=== PATIENT | male | born 1970 | race Caucasian/White ===

== ENCOUNTER 2017-08-06 11:00 | Outpatient (RCR) | payer OTHER, SELFPAY | END 2017-08-06 23:59 | LOC: PT.CARL 11:00 | PROVIDERS: Referring Provider Orthopaedic Surgery; Visit Provider Orthopaedic Surgery | DX: Z96.652 Presence of left artificial knee joint (principal); M25.562 Pain in left knee | CPT/HCPCS: 97014; 97110; 97140; 97161; G0283 ==

== ENCOUNTER 2017-09-04 16:00 | Outpatient (RCR) | payer OTHER, SELFPAY | END 2017-09-04 17:00 | disposition home or self-care (01) | LOC: PT 16:00 | PROVIDERS: Visit Provider Orthopaedic Surgery | DX: Z96.652 Presence of left artificial knee joint | CPT/HCPCS: 97110; 97140 ==

== ENCOUNTER → 2019-09-26 10:48 | Outpatient (CLI) | payer BC, SELFPAY ==
[2019-09-26 11:38] LABS: Basophils # 0.1 K/mm3 (0-0.2); Basophils % 1.4 % (0.1-2.0); Eosinophils # 0.1 K/mm3 (0.0-0.4); Eosinophils % 1.9 % (0.1-12.0); Hematocrit 47.6 % (42.0-52.0); Hemoglobin 16.5 g/dL (14.1-18.0); Lymphocytes # 2.4 K/mm3 (0.7-4.5); Lymphocytes % 33.8 % (10-50); Mean Corpuscular HGB Conc 34.7 g/dL (31.8-35.4); Mean Corpuscular Hemoglobin 32.3 pg (27.0-31.2); Mean Corpuscular Volume 93.3 fl (80-94); Mean Platelet Volume 7.1 fl (7.4-10.4); Monocytes # 0.4 K/mm3 (0.1-1.0); Monocytes % 5.2 % (1.7-9.3); Neutrophils # 4.1 K/mm3 (1.8-7.8); Neutrophils % 57.7 % (37.0-80.0); Platelet Count 253 K/mm3 (142-424); Red Blood Count 5.11 M/mm3 (4.60-6.20); Red Cell Distribution Width 12.8 % (11.5-17.5); White Blood Count 7.1 K/mm3 (4.8-10.8)
[2019-09-26 12:43] LABS: Alanine Aminotransferase 77 U/L (12-78); Albumin Level 4.7 g/dl (3.5-5.0); Albumin/Globulin Ratio 1.6 (1.1-1.8); Alkaline Phosphatase 72 U/L (38-126); Anion Gap 14.4 mEq/L (5-15); Aspartate Amino Transferase 43 U/L (17-59); Bilirubin,Total 0.4 mg/dl (0.2-1.3); Blood Urea Nitrogen 24 mg/dl (9-20); Calcium 10.1 mg/dl (8.4-10.2); Carbon Dioxide 29 mmol/L (22.0-30.0); Chloride 100 mmol/L (98-107); Estimated Glomerular Filt Rate 71 ml/min (>60); GFR (African American) 86 ML/MIN (>60); Globulin 2.9 g/dL (1.3-3.2); Glucose 100 mg/dl (74-100); HDL Cholesterol 50 mg/dl (40-60); Potassium 4.4 mmoL/L (3.5-5.1); Sodium 139 mmol/L (136-145); Total Protein,Serum 7.6 g/dl (6.3-8.2); Uric Acid 8.8 mg/dl (3.5-8.5)
[2019-09-26 12:44] LABS: Chol/HDL Ratio 3.4 (1-3.5); Cholesterol 170 mg/dl (140-200); Triglycerides 184 mg/dl (30-150); VLDL Cholesterol 37 mg/dL (0-40)
[2019-09-26 13:12] LABS: Prostate Specific Ag, Diagnost 0.986 ng/ml (0.0-4.0)
== END ==
PROVIDERS: Visit Provider Internal Medicine
DX: I10 Essential (primary) hypertension (principal); M10.9 Gout, unspecified; E78.5 Hyperlipidemia, unspecified; N40.1 Benign prostatic hyperplasia with lower urinary tract symptoms
CPT/HCPCS: 36415; 80053; 80061; 84153; 84550; 85025

== ENCOUNTER → 2020-02-02 14:42 | Outpatient (CLI) | payer BC, SELFPAY | PROVIDERS: PCP Internal Medicine; Visit Provider Internal Medicine | DX: G47.10 Hypersomnia, unspecified (principal); I10 Essential (primary) hypertension; R40.0 Somnolence; R06.83 Snoring | CPT/HCPCS: G0399 ==

== ENCOUNTER 2020-06-06 08:52 | Emergency (ER) | payer BC, SELFPAY ==
--- NOTE | 2020-06-06 08:49 | ECG_ITS ---
APPROVED REPORT Exam: Resting ECG HR:74 bpm ECG Measurements Heart Rate 74 AXES WA 160 P 36 QRSd 86 QRS 22 QT 392 T 45 QTc 435 Conclusion Normal sinus rhythm Normal ECG Electronically signed by : Neri Adams, 06/07/2020 14:48:00
[2020-06-06 08:53] VITALS: BP 164/109; PULSE 74; RESP 20; TEMP 36.9; O2SAT 98; BMI 32.1
--- NOTE | 2020-06-06 08:56 | XR_ITS ---
PROCEDURE: XR CHEST 2V CLINICAL HISTORY: chest pain COMPARISON: No exams were available for comparison FINDINGS: The cardiomediastinal silhouette and pulmonary vascularity are within normal limits. The lungs are clear without infiltrates, suspicious nodules, or pleural effusions. No acute bony abnormalities. IMPRESSION: No acute findings. Dictated by: Jad Benitez MD 06/06/2020 09:38 Jad Benitez MD in [facility] 06/06/2020 09:38
--- NOTE | 2020-06-06 09:10 | [facility].EDCP ---
ED Disposition Clinical Impression: Atypical chest pain, Anxiety Disposition: Home, Self-Care Condition on Discharge: Good Instructions: DI for Atypical Chest Pain Referrals: PCP,No [Non-Staff] - Mannie Rios MD [Staff Physician] - - Critical Care Critical Care Time: No Attestation: On 06/06/20, the high probability of a clinically significant, sudden or life threatening deterioration of the following system(s) required my full and direct attention, intervention and personal management. The time I documented below is in addition to time spent performing reported procedures but includes the following listed in this critical care notation. Medical Decision Making - Medical Records Medical records reviewed: Yes: I reviewed the patient's medical records. - Nain Inquiry Pt receiving controlled substance: No Vital Signs: 06/06/20 08:53 06/06/20 11:04 06/06/20 11:47 Temperature 98.5 F Temperature Source Oral Pulse Rate [Right Radial] 74 68 65 Respiratory Rate 20 17 Blood Pressure [Right Arm] 164/109 H 149/95 H 139/91 H Blood Pressure Mean [Right Arm] 127 113 107 Blood Pressure Source [Right Arm] Automatic Cuff Blood Pressure Position [Right Arm] Sitting 02 Sat by Pulse Oximetry 98 95 98 Oxygen Delivery Method Room Air Room Air - Lab Data Lab Results 06/06/20 08:50: WBC 4.7 L, RBC 5.20, Hgb 17.7, Hct 51.1, MCV 98.3 H, MCH 34.1 H, MCHC 34.7, RDW 13.4, Plt Count 193, MPV 7.8, Neut % (Auto) 66.2, Lymph % (Auto) 23.0, [place] % (Auto) 8.7, Eos % (Auto) 0.7, Baso % (Auto) 1.3, Neut # (Auto) 3.1, Lymph # (Auto) 1.1, [place] # (Auto) 0.4, Eos # (Auto) 0.0, Baso # (Auto) 0.1 06/06/20 08:50: Sodium 136, Potassium 4.5, Chloride 100, Carbon Dioxide 22, Anion Gap 18.5 H, BUN 12, Creatinine 1.00, Estimated Creat Clear 140, Estimated GFR 79, Est GFR ( Amer) 95, Glucose 118 H, Calcium 10.1, Troponin I < 0.01, TSH 2.93 06/06/20 08:50: PT 11.0, INR 0.99, APTT 24.0 06/06/20 08:50: D-Dimer 0.41 06/06/20 08:50: NT-Pro-B Natriuret Pep 61.4 06/06/20 08:50: Acetone Level None detected 06/06/20 09:50: VBG pH 7.41, VBG pCO2 35.6, VBG pO2 63.3 H, VBG HCO3 22.0 L, VBG Total CO2 23.1, VBG O2 Saturation 92.7 H, VBG Base Excess -2.7 L 06/06/20 12:00: Troponin I < 0.01 Result diagrams: 06/06/20 08:50 06/06/20 08:50 Orders (Tests/Meds): ED MEDICATIONS Discontinued Medications Generic Name Dose Route Start Last Admin Trade Name Heathq PRN Reason Stop Dose Admin Aspirin 325 mg 06/06/20 09:04 06/06/20 09:15 Aspirin 325mg Tablet PO 06/06/20 09:05 Not Given ONCE ONE Aspirin 324 mg 06/06/20 09:16 06/06/20 09:17 Aspirin 81mg Chewable Tablet PO 06/06/20 09:17 324 mg ONCE ONE Administration Lorazepam 2 mg 06/06/20 13:00 Lorazepam 1mg Tablet PO 06/06/20 13:01 ONCE ONE ORDERS Category Date Time Status Troponin I Q3H Lab 06/06/20 15:00 Ordered - Radiology Data #1 Image(s): Chest Image Reviewed: Yes I reviewed the patient's radiology results, Yes I reviewed the patient's radiology image, Yes I reviewed the patient's radiology image w/the ED provider Preliminary Findings: Normal/NAD, No Fracture Seen, No Infiltrates Seen - ECG Data Tracing #1 No ventricular rate of 74 bpm. Normal MD interval of 160 ms. Normal QTC. Final interpretation was normal sinus rhythm normal EKG. ECG initial impression date: 06/06/20 ECG initial impression time: 08:51 - Reevaluation(s) Time: 13:01 Reevaluation #1: On reevaluation, patient is feeling better. 2 - troponins. Negative D-dimer. No significant EKG changes. Patient needs to follow-up with PCP and cardiology. Given strict return precautions. Verbalized understanding. Medical Decision Narrative: 50-year-old male presented to the emergency department with chest discomfort. Patient is relatively low risk based on heart score. Work-up will be initiated. Chest Pain HPI - General Chief Complaint: Chest Pain Sta
[2020-06-06 09:38] LABS: Chloride 100 mmol/L (98-107); Potassium 4.5 mmoL/L (3.5-5.1); Sodium 136 mmol/L (136-145)
[2020-06-06 09:41] LABS: Anion Gap 18.5 mEq/L (5-15); Blood Urea Nitrogen 12 mg/dl (9-20); Carbon Dioxide 22 mmol/L (22.0-30.0); Creatinine Clearance Estimated 140 mL/min (50-200); Estimated Glomerular Filt Rate 79 ml/min (>60); GFR (African American) 95 ML/MIN (>60)
[2020-06-06 09:42] LABS: Calcium 10.1 mg/dl (8.4-10.2); Glucose 118 mg/dl (74-100)
[2020-06-06 09:45] LABS: Basophils # 0.1 K/mm3 (0-0.2); Basophils % 1.3 % (0.1-2.0); Eosinophils % 0.7 % (0.1-12.0); Hematocrit 51.1 % (42.0-52.0); Hemoglobin 17.7 g/dL (14.1-18.0); Lymphocytes # 1.1 K/mm3 (0.7-4.5); Mean Corpuscular HGB Conc 34.7 g/dL (31.8-35.4); Mean Corpuscular Hemoglobin 34.1 pg (27.0-31.2); Mean Corpuscular Volume 98.3 fl (80-94); Mean Platelet Volume 7.8 fl (7.4-10.4); Monocytes # 0.4 K/mm3 (0.1-1.0); Monocytes % 8.7 % (1.7-9.3); Neutrophils # 3.1 K/mm3 (1.8-7.8); Neutrophils % 66.2 % (37.0-80.0); Platelet Count 193 K/mm3 (142-424); Red Cell Distribution Width 13.4 % (11.5-17.5); White Blood Count 4.7 K/mm3 (4.8-10.8)
[2020-06-06 09:51] LABS: NT Pro Brain Natriuretic Pep. 61.4 pg/mL (0-125)
[2020-06-06 09:55] LABS: Troponin I < 0.01 ng/ml (0.00-0.034)
[2020-06-06 09:57] LABS: INR 0.99 (0.9-1.1)
[2020-06-06 09:58] LABS: D-Dimer 0.41 ug/mL (0.15-8.0)
[2020-06-06 10:01] LABS: Acetone, Serum (Rapid) None Detected (None Detect)
[2020-06-06 10:12] LABS: VBG Base Excess -2.7 mmol/L (-2.4-2.3); VBG Oxygen Saturation 92.7 % (50-70); VBG PCO2 35.6 mmol/L (35-51); VBG PH 7.41 mmol/L (7.31-7.41); VBG PO2 63.3 mmol/L (28-40); VBG Total CO2 23.1 mmol/L (23-27)
[2020-06-06 10:13] LABS: Thyroid Stimulating Hormone 2.93 uIU/mL (0.465-4.68)
[2020-06-06 11:04] VITALS: BP 149/95; PULSE 68; O2SAT 95
[2020-06-06 11:47] VITALS: BP 139/91; PULSE 65; RESP 17; O2SAT 98
--- NOTE | 2020-06-06 12:03 | PC.NURSE ---
2nd troponin drawn and to lab for resulting.
[2020-06-06 12:54] LABS: Troponin I < 0.01 ng/ml (0.00-0.034)
--- NOTE | 2020-06-06 12:55 | PC.NURSE ---
patient and update on plan of care. both deny questions or needs. dr haley at bedside for disposition.
[2020-06-06 13:12] VITALS: BP 133/87; PULSE 79; RESP 17; TEMP 36.8; O2SAT 98
== END 2020-06-06 13:13 | disposition home or self-care (01) ==
PROVIDERS: Emergency Provider Emergency Medicine; PCP Internal Medicine
DX: R07.89 Other chest pain (principal); F41.9 Anxiety disorder, unspecified
CPT/HCPCS: 71046; 80048; 82009; 82803; 83880; 84443; 84484; 85025; 85378; 85610; 85730; 93005; 99283

== ENCOUNTER → 2020-08-04 13:48 | Outpatient (CLI) | payer BC, SELFPAY | PROVIDERS: PCP Internal Medicine; Visit Provider Internal Medicine | DX: Z20.828 Contact with and (suspected) exposure to other viral communicable diseases (principal); U07.1 COVID-19 | CPT/HCPCS: U0003 ==

== ENCOUNTER 2021-10-01 13:02 | Emergency (ER) | payer OTHER, SELFPAY ==
[2021-10-01 13:03] VITALS: BP 139/79; PULSE 55; RESP 18; TEMP 36.5; O2SAT 96; BMI 33.3
--- NOTE | 2021-10-01 13:15 | XR_ITS ---
PROCEDURE INFORMATION: Exam: XR Left Hand Exam date and time: 10/01/2021 1:15 PM Age: 51 years old Clinical indication: Injury or trauma; Other: Smashed end of index finger; Crushing; Left; Injury date: 10/01/21; Additional info: Trauma/ severe smashed index finger left- fracture as well TECHNIQUE: Imaging protocol: XR Left hand. Views: 1 or 2 views. COMPARISON: No relevant prior studies available. FINDINGS: Bones/joints: Comminuted, displaced fracture of the distal portion of the 2nd distal phalanx. No dislocation. Soft tissues: Soft tissue injury in the distal 2nd phalanx. IMPRESSION: Open comminuted fracture of the distal 2nd phalanx.
--- NOTE | 2021-10-01 13:24 | PC.NURSE ---
radiology is bedside
--- NOTE | 2021-10-01 13:28 | PC.NURSE ---
assisted the patient to sitting back on the stretcher and soaking his hand in the tub of warm water with Hibiclens. Patient tolerated well.
--- NOTE | 2021-10-01 13:53 | [facility].EDWNDL ---
ED Disposition Clinical Impression: Fracture of distal phalanx of left index finger Qualifiers: Encounter type: initial encounter Fracture type: open Fracture alignment: displaced Qualified Code(s): S62.631B - Displaced fracture of distal phalanx of left index finger, initial encounter for open fracture Disposition: Home, Self-Care Condition on Discharge: Good Instructions: DI for Laceration Repair Prescriptions: Hydrocod/Acet 5/325 mg [Marks 5/325mg tablet] 1 tab PO Q6HP PRN #10 tab PRN Reason: Moderate To Severe Pain Transmission Status: Pending to [facility] # Amoxicillin/Potassium Clav [Augmentin 875-125 Tablet] 1 tab PO Q12H #20 tab Transmission Status: Pending to [facility] # Referrals: Felipe Toure [Primary Care Provider] - - Critical Care Critical Care Time: No Attestation: On 10/01/21, the high probability of a clinically significant, sudden or life threatening deterioration of the following system(s) required my full and direct attention, intervention and personal management. The time I documented below is in addition to time spent performing reported procedures but includes the following listed in this critical care notation. Medical Decision Making - Medical Records Medical records reviewed: Yes: I reviewed the patient's medical records. - Nain Inquiry Pt receiving controlled substance: No Vital Signs: 10/01/21 13:03 Temperature 97.7 F Temperature Source Oral Pulse Rate [Right Radial] 55 L Respiratory Rate 18 Blood Pressure [Right Arm] 139/79 Blood Pressure Mean [Right Arm] 99 Blood Pressure Source [Right Arm] Automatic Cuff Blood Pressure Position [Right Arm] Sitting 02 Sat by Pulse Oximetry 96 Oxygen Delivery Method Room Air Orders (Tests/Meds): ED MEDICATIONS Discontinued Medications Generic Name Dose Route Start Last Admin Trade Name Freq PRN Reason Stop Dose Admin Hydrocodone Bitart/Acetaminophen 1 tab 10/01/21 13:15 10/01/21 13:41 Hydrocodone 10mg/Apap 325mg Tab PO 10/01/21 13:16 1 tab ONCE ONE Administration - Radiology Data #1 Image(s): Hand Image Reviewed: Yes I reviewed the patient's radiology results, Yes I reviewed the patient's radiology image, Yes I have reviewed radiologist's interpretation IMPRESSION: Open comminuted fracture of the distal 2nd phalanx. - Reevaluation(s) Time: 14:50 Reevaluation #1: Patient tolerated procedure well. Patient does have a significant comminuted open fracture. To be placed on short course analgesics with antibiotics. I did speak with hand surgery in [place]. They have arranged to see him tomorrow morning emergently in the hand clinic. Patient will maintain this appointment. Given strict return precautions. Verbalized understanding. Medical Decision Narrative: 51-year-old male presented to the emergency department with some left hand pain. Patient has evidence of crush injury. I am concerned for open fracture. Patient was provided analgesics. Work-up initiated. Wound/Laceration HPI - General Chief Complaint: Wound/Laceration Stated Complaint: AO 10/01 finger laceraation Time Seen by Provider: 10/01/21 13:10 Mode of Arrival: Ambulatory Limitations: No Limitations Description of Symptoms (Recalled from ER Triage Doc. by RN): Pt presents with injury to left hand involving index, middle and ring fingers. Open lac present to index finger. Bruising noted to middle and ring finger. 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 - History of Present Illness HPI narrative: Is a 51-year-old male presented to the emergency department with injury to his left hand. Patient was using a rn postpartum when he smashed his fingers in it. Patient has a laceration to the distal aspect of the left index finger. He is complaining of some pain in his index middle and ring finger on that hand. Patient states that he is up-to-date on tetanus immunization. Did not gonzalez
[2021-10-01 15:04] VITALS: BP 128/81; PULSE 61; RESP 18; TEMP 36.2; O2SAT 98
--- NOTE | 2021-10-02 09:28 | PC.NURSE ---
pt called advising [facility] could not see pt today. Could we fax papers to another facility , i advised her they would have to request them. pt then called back later and asked same thing and stated that he was going to [facility] and that he needed reports. mine engineering supervisor contacted and a disc and reports were prepared for pt to chart picker. i also called [facility] dr garcia office and they advised that dr garcia was in surgery all day and that they had made him an appt for tomorrow morning.
== END 2021-10-01 15:04 | disposition home or self-care (01) ==
PROVIDERS: Emergency Provider Emergency Medicine; PCP Internal Medicine
DX: S62.631B Displaced fracture of distal phalanx of left index finger, initial encounter for open fracture (principal); S61.311A Laceration without foreign body of left index finger with damage to nail, initial encounter; W23.0XXA Caught, crushed, jammed, or pinched between moving objects, initial encounter; Y92.73 Farm field as the place of occurrence of the external cause
CPT/HCPCS: 13132; 73120; 99283

== ENCOUNTER → 2022-06-12 07:45 | Outpatient (CLI) | payer OTHER, SELFPAY ==
[2022-06-12 08:10] LABS: Basophils # 0.1 K/mm3 (0-0.2); Basophils % 1.6 % (0.1-2.0); Eosinophils # 0.1 K/mm3 (0.0-0.4); Eosinophils % 1.6 % (0.1-12.0); Hematocrit 49.7 % (42.0-52.0); Hemoglobin 16.8 g/dL (14.1-18.0); Lymphocytes # 1.6 K/mm3 (0.7-4.5); Mean Corpuscular HGB Conc 33.7 g/dL (31.8-35.4); Mean Corpuscular Hemoglobin 33.2 pg (27.0-31.2); Mean Corpuscular Volume 98.4 fl (80-94); Mean Platelet Volume 7.7 fl (7.4-10.4); Monocytes # 0.5 K/mm3 (0.1-1.0); Monocytes % 6.4 % (1.7-9.3); Neutrophils # 4.7 K/mm3 (1.8-7.8); Neutrophils % 67.4 % (37.0-80.0); Platelet Count 210 K/mm3 (142-424); Red Blood Count 5.05 M/mm3 (4.60-6.20); Red Cell Distribution Width 13.4 % (11.5-17.5)
[2022-06-12 08:48] LABS: Alanine Aminotransferase 73 U/L (12-78); Albumin Level 4.9 g/dl (3.5-5.0); Albumin/Globulin Ratio 1.8 (1.1-1.8); Alkaline Phosphatase 96 U/L (38-126); Anion Gap 17.6 mEq/L (5-15); Aspartate Amino Transferase 41 U/L (17-59); Bilirubin,Total 0.7 mg/dl (0.2-1.3); Blood Urea Nitrogen 19 mg/dl (9-20); Calcium 10.3 mg/dl (8.4-10.2); Carbon Dioxide 29 mmol/L (22.0-30.0); Chloride 97 mmol/L (98-107); Chol/HDL Ratio 3.7 (1-3.5); Cholesterol 167 mg/dl (140-200); Estimated Glomerular Filt Rate 70 ml/min (>60); GFR (African American) 85 ML/MIN (>60); Globulin 2.7 g/dL (1.3-3.2); Glucose 115 mg/dl (74-100); HDL Cholesterol 45 mg/dl (40-60); Potassium 4.6 mmoL/L (3.5-5.1); Sodium 139 mmol/L (136-145); Total Protein,Serum 7.6 g/dl (6.3-8.2); Triglycerides 130 mg/dl (30-150); Uric Acid 5.8 mg/dl (3.5-8.5); VLDL Cholesterol 26 mg/dL (0-40)
[2022-06-12 09:05] LABS: Direct LDL Cholesterol 96.73 mg/dL (100-129)
[2022-06-12 09:18] LABS: Prostate Specific Ag Screen 0.6 ng/ml (0.0-4.0)
== END ==
PROVIDERS: PCP Internal Medicine; Visit Provider Internal Medicine
DX: M10.9 Gout, unspecified (principal); M15.0 Primary generalized (osteo)arthritis; I10 Essential (primary) hypertension; E78.5 Hyperlipidemia, unspecified; F41.9 Anxiety disorder, unspecified; Z12.5 Encounter for screening for malignant neoplasm of prostate
CPT/HCPCS: 36415; 80053; 80061; 84550; 85025; G0103

== ENCOUNTER → 2022-06-25 15:24 | Outpatient (CLI) | payer OTHER, SELFPAY | PROVIDERS: PCP Internal Medicine; Visit Provider Internal Medicine | DX: G47.30 Sleep apnea, unspecified (principal); I10 Essential (primary) hypertension; R06.83 Snoring; E66.9 Obesity, unspecified ==

== ENCOUNTER → 2022-07-18 15:39 | Outpatient (CLI) | payer OTHER, SELFPAY | PROVIDERS: PCP Internal Medicine; Visit Provider Internal Medicine | DX: G47.33 Obstructive sleep apnea (adult) (pediatric) (principal); I10 Essential (primary) hypertension; R06.83 Snoring; E66.9 Obesity, unspecified | CPT/HCPCS: 95806; G0399 ==

== ENCOUNTER → 2022-10-16 12:48 | Outpatient (CLI) | payer OTHER, SELFPAY ==
[2022-10-16 17:29] LABS: Hemoglobin A1C 5.6 % (4.0-6.0)
[2022-10-16 17:35] LABS: Chloride 100 mmol/L (98-107); Potassium 5.4 mmoL/L (3.5-5.1); Sodium 137 mmol/L (136-145)
[2022-10-16 17:38] LABS: Anion Gap 12.4 mEq/L (5-15); Blood Urea Nitrogen 17 mg/dl (9-20); Calcium 9.4 mg/dl (8.4-10.2); Carbon Dioxide 30 mmol/L (22.0-30.0); Estimated Glomerular Filt Rate 78 ml/min (>60); GFR (African American) 95 ML/MIN (>60); Glucose 87 mg/dl (74-100)
== END ==
PROVIDERS: PCP Internal Medicine; Visit Provider Internal Medicine
DX: I10 Essential (primary) hypertension (principal); R73.01 Impaired fasting glucose; M10.9 Gout, unspecified; M15.0 Primary generalized (osteo)arthritis
CPT/HCPCS: 80048; 83036

== ENCOUNTER → 2023-05-28 13:27 | Outpatient (CLI) | payer OTHER, SELFPAY ==
[2023-05-28 14:26] LABS: Alanine Aminotransferase 54 U/L (12-78); Albumin Level 4.8 g/dl (3.5-5.0); Albumin/Globulin Ratio 1.8 (1.1-1.8); Alkaline Phosphatase 76 U/L (38-126); Aspartate Amino Transferase 44 U/L (17-59); Bilirubin,Total 0.8 mg/dl (0.2-1.3); Blood Urea Nitrogen 14 mg/dl (9-20); Calcium 9.5 mg/dl (8.4-10.2); Carbon Dioxide 26 mmol/L (22.0-30.0); Chloride 101 mmol/L (98-107); Chol/HDL Ratio 3.8 (1-3.5); Cholesterol 179 mg/dl (140-200); Estimated Glomerular Filt Rate 78 ml/min (>60); GFR (African American) 94 ML/MIN (>60); Globulin 2.7 g/dL (1.3-3.2); Glucose 95 mg/dl (74-100); HDL Cholesterol 47 mg/dl (40-60); Sodium 139 mmol/L (136-145); Total Protein,Serum 7.5 g/dl (6.3-8.2); Triglycerides 155 mg/dl (30-150); Uric Acid 7.8 mg/dl (3.5-8.5); VLDL Cholesterol 31 mg/dL (0-40)
[2023-05-28 14:37] LABS: Direct LDL Cholesterol 110.92 mg/dL (100-129)
== END ==
LOC: LAB.DROPOF 13:28
PROVIDERS: PCP Internal Medicine; Visit Provider Internal Medicine
DX: I10 Essential (primary) hypertension (principal); M15.0 Primary generalized (osteo)arthritis; M10.9 Gout, unspecified; E78.5 Hyperlipidemia, unspecified; G47.33 Obstructive sleep apnea (adult) (pediatric)
CPT/HCPCS: 80053; 80061; 84550

== ENCOUNTER 2024-02-18 09:54 | Outpatient (CLI) | payer OTHER, SELFPAY ==
[2024-02-18 17:43] LABS: Basophils # 0.1 K/mm3 (0-0.2); Basophils % 0.9 % (0.1-2.0); Eosinophils # 0.1 K/mm3 (0.0-0.4); Eosinophils % 2.1 % (0.1-12.0); Hematocrit 47.3 % (42.0-52.0); Hemoglobin 16.1 g/dL (14.1-18.0); Lymphocytes # 1.5 K/mm3 (0.7-4.5); Lymphocytes % 25.5 % (10-50); Mean Corpuscular Hemoglobin 34.3 pg (27.0-31.2); Mean Platelet Volume 7.6 fl (7.4-10.4); Monocytes # 0.3 K/mm3 (0.1-1.0); Monocytes % 5.6 % (1.7-9.3); Neutrophils # 3.9 K/mm3 (1.8-7.8); Neutrophils % 65.9 % (37.0-80.0); Platelet Count 206 K/mm3 (142-424); Red Blood Count 4.68 M/mm3 (4.60-6.20); Red Cell Distribution Width 14.6 % (11.5-17.5); White Blood Count 5.9 K/mm3 (4.8-10.8)
[2024-02-18 18:27] LABS: Alanine Aminotransferase 51 U/L (12-78); Albumin Level 4.6 g/dl (3.5-5.0); Albumin/Globulin Ratio 1.5 (1.1-1.8); Alkaline Phosphatase 105 U/L (38-126); Anion Gap 14.3 mEq/L (5-15); Aspartate Amino Transferase 46 U/L (17-59); Bilirubin,Total 0.8 mg/dl (0.2-1.3); Blood Urea Nitrogen 14 mg/dl (9-20); Calcium 9.8 mg/dl (8.4-10.2); Carbon Dioxide 25 mmol/L (22.0-30.0); Chloride 102 mmol/L (98-107); Chol/HDL Ratio 3.4 (1-3.5); Cholesterol 199 mg/dl (140-200); Estimated Glomerular Filt Rate 88 ml/min (>60); GFR (African American) 106 ML/MIN (>60); Glucose 96 mg/dl (74-100); HDL Cholesterol 58 mg/dl (40-60); Potassium 4.3 mmoL/L (3.5-5.1); Sodium 137 mmol/L (136-145); Total Protein,Serum 7.6 g/dl (6.3-8.2); Triglycerides 155 mg/dl (30-150); Uric Acid 5.9 mg/dl (3.5-8.5); VLDL Cholesterol 31 mg/dL (0-40)
[2024-02-18 18:38] LABS: Direct LDL Cholesterol 102.31 mg/dL (100-129)
[2024-02-18 19:00] LABS: Prostate Specific Ag Screen 0.8 ng/ml (0.0-4.0)
[2024-02-19 15:29] LABS: Vitamin B12 411 pg/mL (239-931)
== END 2024-02-18 23:59 | disposition home or self-care (01) ==
LOC: LAB.DROPOF 02-19 09:54
PROVIDERS: PCP Internal Medicine; Visit Provider Internal Medicine
DX: M10.9 Gout, unspecified (principal); D51.9 Vitamin B12 deficiency anemia, unspecified; I10 Essential (primary) hypertension; E78.5 Hyperlipidemia, unspecified; Z12.5 Encounter for screening for malignant neoplasm of prostate
CPT/HCPCS: 80053; 80061; 82607; 84550; 85025; G0103

== ENCOUNTER 2024-09-02 13:48 | Outpatient (CLI) | payer OTHER, SELFPAY ==
[2024-09-02 14:24] LABS: Alanine Aminotransferase 79 U/L (12-78); Albumin Level 5.2 g/dl (3.5-5.0); Albumin/Globulin Ratio 2.2 (1.1-1.8); Alkaline Phosphatase 79 U/L (38-126); Anion Gap 16.9 mEq/L (5-15); Aspartate Amino Transferase 60 U/L (17-59); Bilirubin,Total 0.6 mg/dl (0.2-1.3); Blood Urea Nitrogen 19 mg/dl (9-20); Carbon Dioxide 27 mmol/L (22.0-30.0); Chloride 101 mmol/L (98-107); Chol/HDL Ratio 3.8 (1-3.5); Cholesterol 202 mg/dl (140-200); Estimated Glomerular Filt Rate 69 ml/min (>60); GFR (African American) 84 ML/MIN (>60); Globulin 2.4 g/dL (1.3-3.2); Glucose 98 mg/dl (74-100); HDL Cholesterol 53 mg/dl (40-60); Potassium 4.9 mmoL/L (3.5-5.1); Sodium 140 mmol/L (136-145); Total Protein,Serum 7.6 g/dl (6.3-8.2); Triglycerides 184 mg/dl (30-150); Uric Acid 6.5 mg/dl (3.5-8.5); VLDL Cholesterol 37 mg/dL (0-40)
[2024-09-02 14:34] LABS: Direct LDL Cholesterol 125.79 mg/dL (100-129)
== END 2024-09-02 23:59 | disposition home or self-care (01) ==
LOC: LAB.DROPOF 13:48
PROVIDERS: PCP Internal Medicine; Visit Provider Internal Medicine
DX: E78.5 Hyperlipidemia, unspecified (principal); I10 Essential (primary) hypertension; M10.9 Gout, unspecified
CPT/HCPCS: 80053; 80061; 84550